=== PATIENT | male | born 1945 | race Caucasian/White ===

== ENCOUNTER 2022-05-19 20:48 | Emergency (ER) | payer MEDICARE, OTHER ==
[~2022-05-19] VITALS: Ht 180.3 cm; Wt 81.6 kg
[2022-05-19 20:48] VITALS: BP 167/92
--- NOTE | 2022-05-19 20:48 | NUR ---
ARRIVAL TAKEN VIA WHEELCHAIR TO ROOM. ASSIST X2 TO BED. SHUFFLING GAIT. 3 WEEKS OF RIGHT MID BACK PAIN. HAS REDNESS TO RIGHT MID BACK. H/O SHINGLES. FELL THIS EVENING. TOOK 2 GABAPENTIN 350MG THIS AM. HAS HAD 5 SHOTS OF WHISKEY TODAY. WAS SINGING A SONG AT [facility] AND LOST BALANCE AND FELL. HAS ABRASION TO FA THAT WAS BANDAGE BY FAMILY MEMBER "THAT IS A PHYSICIAN". ALERT AND ORIENTED X3. AT BEDSIDE. C/O PAIN 20/[address] BONE AT BEDSIDE. AWAITING NEW ORDERS.
--- NOTE | 2022-05-19 21:27 | PCM.EKG ---
[facility] Test Date: 2022-05-19 Test Time: 21:24:54 Pat Name: CORINA ARCOS Department: Room: Gender: M Lock Plater: SUDHA : 1945 Requested By: VICKEY BONE Order Number: [id number] Reading MD: Measurements Intervals [place] Rate: 56 P: 30 WY: 189 QRS: 44 QRSD: 91 T: 53 QT: 426 QTc: 412 Interpretive Statements Sinus rhythm No previous ECG available for comparison Please click the below link to view image of tracing.
[2022-05-19] MEDS ORDERED: TORADOL IM ONE (21:30)
[2022-05-19] MEDS ORDERED: TORADOL ONE (21:30)
[2022-05-19 22:06] LABS: BASOPHIL % 0.8 % (0.0-0.2); EOSINOPHIL # 0.1 10^3/uL (0.0-0.2); EOSINOPHIL % 3.8 % (0.0-5.0); LYMPHOCYTES # 1.28 10^3/uL1 (1.0-4.8); LYMPHOCYTES % 34.6 % (24.0-44.0); MEAN CORP HGB 37.3 pg (26-34); MONOCYTES # 0.4 10^3/uL (0.3-0.8); MONOCYTES % 11.6 % (5.0-12.0); NEUTROPHIL # 1.8 10^3/uL (1.8-7.7); NEUTROPHILS % 49.2 % (41.0-85.0); PLATELET COUNT 106 10^3/uL (150-400); RED CELL DISTRIBUTION WIDTH 12.6 % (11.5-14.5)
--- NOTE | 2022-05-19 22:27 | DIREP ---
PROCEDURE:CHEST 1 VIEW COMPARISON:None. INDICATIONS:tremors/weakness FINDINGS: LUNGS/PLEURA:Mild platelike atelectasis at the left lung base. Otherwise lungs are clear. VASCULATURE:Normal. Unremarkable pulmonary vasculature. CARDIAC:Normal. No cardiac silhouette abnormality or cardiomegaly. MEDIASTINUM:Normal. No visible mass or adenopathy. BONES:Normal. No fracture or visible bony lesion. OTHER:Negative. CONCLUSION:Platelike atelectasis at the left lung base. Dictated by: Dano Waters M.D. on 05/19/2022 at 10:26 PM
[2022-05-19 22:30] LABS: CARBON DIOXIDE 27.9 mmol/L (20.0-32)
--- NOTE | 2022-05-19 22:43 | DIREP ---
PROCEDURE:CT SPINE THORACIC W/O COMPARISON:None. INDICATIONS:severe pain midline, radiates to right upper back TECHNIQUE:Multi-planar CT images were obtained and created without intravenous contrast. FINDINGS: VERTEBRAE:No visible fracture ALIGNMENT:Curvature and alignment are within normal limits for age. DISCS:Mild vacuum phenomenon at the mid to lower thoracic spine. SPINAL CORD/CONUS:Grossly intact PARASPINAL AREA:Normal. CONCLUSION:No visible fracture. Mild degenerative disc disease. Dictated by: Dano Waters M.D. on 05/19/2022 at 10:35 PM
--- NOTE | 2022-05-19 22:46 | DIREP ---
PROCEDURE: CT LUMBAR SPINE WITHOUT CONTRAST TECHNIQUE:Axial cuts were obtained through the lumbar spine. The images were viewed at bone and soft tissue settings. Sagittal and coronal reconstructions are provided. COMPARISON:None. INDICATIONS:b/l LE weakness, fall FINDINGS: ALIGNMENT:Curvature and alignment are maintained. VERTEBRAE:No visible compression fracture. PARASPINAL AREA:No visible mass. OTHER:Calcified atherosclerosis. LUMBAR DISC LEVELS T12-L1:No foraminal or spinal stenosis. L1-L2:No foraminal or spinal stenosis. L2-L3:Minimal dorsal bulge. No significant foraminal or spinal stenosis. L3-L4:Minimal dorsal bulge. No significant foraminal or spinal stenosis. L4-L5:Mild facet arthropathy. Small dorsal bulge. Mild foraminal stenosis. Mild spinal stenosis. Mild facet arthropathy. L5-S1:Mild facet arthropathy. No significant foraminal or spinal stenosis. CONCLUSION:Mild degenerative changes. No visible fracture. Dictated by: Dano Waters M.D. on 05/19/2022 at 10:41 PM
--- NOTE | 2022-05-19 22:50 | DIREP ---
PROCEDURE:CT CERVICAL SPINE WITHOUT CONTRAST TECHNIQUE:Axial cuts were obtained through the cervical spine. The images were viewed at bone and soft tissue settings. Sagittal and coronal reconstructions are provided. COMPARISON:None. INDICATIONS:severe pain, right arm weakness FINDINGS: ALIGNMENT:Curvature and alignment are maintained. Patient is tilted to the right. VERTEBRAE:No visible compression fracture. Endplate degenerative changes C5-6, C6-7 and C7-T1. PARASPINAL AREA:No visible mass. Calcified atherosclerosis. OTHER:No additional findings. CERVICAL DISC LEVELS C2-C3:No foraminal or spinal stenosis. C3-C4:Mild disc space height loss. Mild endplate degenerative changes. No foraminal or spinal stenosis. C4-C5:Mild uncovertebral arthropathy on the left and moderate on the right. Moderate right and mild left foraminal stenosis. No spinal stenosis. C5-C6:Moderate disc space height loss. Endplate sclerosis. Uncovertebral arthropathy worse on the right. Mild left and moderate right foraminal stenosis. No spinal stenosis. C6-C7:Disc space height loss with endplate degenerative changes. No foraminal or spinal stenosis. C7-T1:No significant foraminal or spinal stenosis. Mild right facet arthropathy. CONCLUSION: 1. No acute fracture. 2. Mild degenerative changes. Dictated by: Dano Waters M.D. on 05/19/2022 at 10:45 PM
[2022-05-19] MEDS ORDERED: LAMICTAL PO STA (23:20)
--- NOTE | 2022-05-19 23:20 | ER.PDOC ---
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 Patient also with some neck and thoracic area pain. He indicated the pain now radiates to the right upper extremity which is something new. Denies any weakness at this point but the does indicate that he been having unsteady gait and imbalance. He does admit to drinking 5 glasses of whiskey because the pain was out of control. The patient is taking currently gabapentin and apparently is not helping very much. He also takes acyclovir and recently finished a course of prednisone. No fever and no chills. No shortness of breath and no chest pain. No nausea no vomiting. No abdominal pain. The pain is severe and constant and progressive. He said he cannot sleep because of the pain. Allergies: Coded Allergies: No Known Allergies (Unverified , 05/19/22) Past Medical History Medical History: hypertension Surgical History: other LMP (females 10-50): N/A Not applicalbe Family History Significant Family History: no pertinent family hx Social History Smoking: non-smoker Alcohol Use: occassionally Drug Use: none Reviewed Nursing Reviewed: Vital Signs, Abn. Noted, Nursing Assessment Review of Systems Constitutional: denies no symptoms reported, denies see HPI, denies chills, denies diaphoresis, denies fever, denies malaise, denies weakness, denies other EENTM: denies no symptoms reported, denies see HPI, denies eye pain, denies blurred vision, denies tearing, denies double vision, denies ear pain, denies ear discharge, denies nose pain, denies nose congestion, denies throat pain, denies throat swelling, denies mouth pain, denies mouth swelling, denies other Respiratory: denies no symptoms reported, denies see HPI, denies cough, denies orthopnea, denies shortness of breath, denies stridor, denies wheezing, denies other Cardiovascular: denies no symptoms reported, denies see HPI, denies chest pain, denies edema, denies palpitations, denies syncope, denies other Gastrointestinal: denies no symptoms reported, denies see HPI, denies abdominal pain, denies constipation, denies diarrhea, denies nausea, denies vomiting, denies other Genitourinary: denies no symptoms reported, denies see HPI, denies discharge, denies dysuria, denies frequency, denies hematuria, denies pain, denies other Musculoskeletal: denies no symptoms reported, denies see HPI; back pain; denies gout, denies joint pain, denies joint swelling, denies muscle pain, denies muscle stiffness; neck pain; denies other Skin: denies no symptoms reported, denies see HPI, denies change in color, denies change in hair/nails, denies dryness, denies lesions, denies lumps, denies rash, denies other Psychiatric/Neurological: denies no symptoms reported, denies see HPI, denies anxiety, denies depressed, denies emotional problems, denies headache, denies numbness, denies paresthesia, denies pre-existing deficit, denies seizure, denies tingling, denies tremors, denies weakness, denies other Hematologic/Lymphatic: denies no symptoms reported, denies see HPI, denies anemia, denies blood clots, denies easy bleeding, denies easy bruising, denies swollen glands, denies other Immunological/Allergic: denies no symptoms reported, denies see HPI, denies food allergy, denies grass allergy, denies mold allergy, denies pollen allergy, denies HIV/AIDS, denies transplant All Other Systems: Reviewed and Negative Physical Exam General Appearance: Moderate Distress EENT: eyes nml inspection, nml ENT inspection Neck: Supple, Tender Midline Respiratory: lungs clear, normal breath sounds, no respiratory distress, no accessory muscle use, other (Posterior right chest wall/upper backup operator to palpation. I do not see any obvious rash. There is mild erythema of the soft tissue in dermatomal distribution) CVS: reg rate & rhythm, no murmur, no gallop, nml capillary refill Gastrointestinal: Normal Bowel Sounds, No Organomegaly, No Pulsatile Mass, Non Tender Back: Normal Inspection, Vertebral Tenderness, Other (There is some cervical and upper thoracic vertebral tenderness. 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, No Motor/Sensory Deficits, Alert, Normal Mood/Affect, Oriented x 3 Skin: Normal Color, Warm/Dry Lymphatic: No Adenopathy Results/Orders Results/Orders Orders - VICKEY BONE MD Cbc With Auto Diff (05/19/22 20:59) Comprehensive Metabolic Panel (05/19/22 20:59) Creatine Kinase (05/19/22 20:59) D-Dimer (05/19/22 20:59) Xr Chest 1v (05/19/22 20:59) Ekg-Routine (05/19/22 20:59) Troponin I High Sensitivity (05/19/22 20:59) Magnesium (05/19/22 20:59) Ammonia (05/19/22 20:59) Thyroid Stimulating Horm(Ml) (05/19/22 20:59) Ct Cervical Spine (05/19/22 20:59) Ct Thoracic Wo Contrast (05/19/22 20:59) Ct Lumbar Wo Contrast (05/19/22 20:59) Alcohol(Ml) (05/19/22 20:59) Ketorolac Tromethamine (Toradol) (05/19/22 21:30) Ketorolac Tromethamine (Toradol) (05/19/22 21:30) Acetaminophen With Codeine (Tylenol #3) (05/19/22 23:30) Lamotrigine (Lamictal) (05/19/22 23:20) Lidocaine (Lidoderm) (05/20/22 09:00) Vital Signs Date Time Temp Pulse Resp B/P (MAP) Pulse Ox O2 Delivery O2 Flow Rate FiO2 05/19/22 20:48 98.0 67 18 05/19/22 20:48 98.0 67 18 98 05/19/22 20:48 98.0 67 18 167/92 (117) 98 Room Air* 0 21 Administered Medications Medications (Trade) Dose Ordered Sig/Ramana Route PRN Reason Start Time Stop Time Status Last Admin Dose Admin Ketorolac Tromethamine (Toradol) 60 mg OT ONCE IM 05/19/22 21:30 05/19/22 21:33 DC 05/19/22 21:47 60 MG Laboratory Tests Test 05/19/22 21:40 White Blood Count 3.7 10^3/uL (4.5-11.0) L Red Blood Count 4.02 10^6/uL (4.50-5.90) L Hemoglobin 15.0 g/dL (13.9-16.3) Hematocrit 41.3 % (37.0-53.0) Mean Corpuscular Volume 102.7 fL (78-100) H Mean Corpuscular Hemoglobin 37.3 pg (26-34) H Mean Corpuscular Hemoglobin Concent 36.3 g/dL (33-36.5) Red Cell Distribution Width 12.6 % (11.5-14.5) Platelet Count 106 10^3/uL (150-400) L Mean Platelet Volume 9.5 fL (7.8-11.0) Neutrophils (%) (Auto) 49.2 % (41.0-85.0) Lymphocytes (%) (Auto) 34.6 % (24.0-44.0) Monocytes (%) (Auto) 11.6 % (5.0-12.0) Neutrophils # (Auto) 1.8 10^3/uL (1.8-7.7) Lymphocytes # (Auto) 1.28 10^3/uL1 (1.0-4.8) Monocytes # (Auto) 0.4 10^3/uL (0.3-0.8) Absolute Immature Granulocyte (auto 0 10^3 u/L (0-2) Absolute Eosinophils (auto) 0.1 10^3/uL (0.0-0.2) Immature Granulocytes % 0.00 % (0.00-0.50) Eosinophils % 3.8 % (0.0-5.0) Basophils % 0.8 % (0.0-0.2) H Basophils # 0.0 10^3/uL (0.0-0.1) D-Dimer 0.70 mg/L (0.19-0.49) *H Sodium Level 141 mmol/L (132-145) Potassium Level 3.9 mmol/L (3.6-5.2) Chloride Level 104.0 mmol/L (96-109) Carbon Dioxide Level 27.9 mmol/L (20.0-32) Anion Gap 13.0 Blood Urea Nitrogen 11 mg/dL (7-18) Creatinine 0.89 mg/dL (0.59-1.40) Estimated GFR () 100.0 (>/=60) Est GFR (CKD-EPI)(Non-Afr [place]) 82.7 (>/=60) BUN/Creatinine Ratio 12.0 Glucose Level 96 mg/dL (70-110) Calcium Level 8.9 mg/dL (8.4-10.5) Magnesium Level 1.9 mg/dL (1.8-2.4) Total Bilirubin 0.7 mg/dL (0.2-1.0) Aspartate Amino Transferase (AST) 36 U/L (0-35) H Alanine Aminotransferase (ALT) 38 U/L (12-78) Alkaline Phosphatase 66 U/L (50-136) Ammonia 1 umol/L (11-35) L Total Creatine Kinase 105 U/L (39-308) Troponin I High Sensitivity 7 ng/L (0-75) Total Protein 6.5 g/dL (6.4-8.2) Albumin 3.8 g/dL (3.4-5.0) Globulin 2.7 Albumin/Globulin Ratio 1.407 Thyroid Stimulating Hormone (TSH) 1.840 mIU/mL (0.358-3.740) Serum Alcohol 64 mg/dL (0-50) H Progress Progress PROCEDURE:CT CERVICAL SPINE WITHOUT CONTRAST TECHNIQUE:Axial cuts were obtained through the cervical spine. The images were viewed at bone and soft tissue settings. Sagittal and coronal reconstructions are provided. COMPARISON:None. INDICATIONS:severe pain, right arm weakness FINDINGS: ALIGNMENT:Curvature and alignment are maintained. Patient is tilted to the right. VERTEBRAE:No visible compression fracture. Endplate degenerative changes C5-6, C6-7 and C7-T1. PARASPINAL AREA:No visible mass. Calcified atherosclerosis. OTHER:No additional findings. CERVICAL DISC LEVELS C2-C3:No foraminal or spinal stenosis. C3-C4:Mild disc space height loss. Mild endplate degenerative changes. No foraminal or spinal stenosis. C4-C5:Mild uncovertebral arthropathy on the left and moderate on the right. Moderate right and mild left foraminal stenosis. No spinal stenosis. C5-C6:Moderate disc space height loss. Endplate sclerosis. Uncovertebral arthropathy worse on the right. Mild left and moderate right foraminal stenosis. No spinal stenosis. C6-C7:Disc space height loss with endplate degenerative changes. No foraminal or spinal stenosis. C7-T1:No significant foraminal or spinal stenosis. Mild right facet arthropathy. CONCLUSION: 1. No acute fracture. 2. Mild degenerative changes. PROCEDURE:CT SPINE THORACIC W/O COMPARISON:None. INDICATIONS:severe pain midline, radiates to right upper back TECHNIQUE:Multi-planar CT images were obtained and created without intravenous contrast. FINDINGS: VERTEBRAE:No visible fracture ALIGNMENT:Curvature and alignment are within normal limits for age. DISCS:Mild vacuum phenomenon at the mid to lower thoracic spine. SPINAL CORD/CONUS:Grossly intact PARASPINAL AREA:Normal. CONCLUSION:No visible fracture. Mild degenerative disc disease. PROCEDURE: CT LUMBAR SPINE WITHOUT CONTRAST TECHNIQUE:Axial cuts were obtained through the lumbar spine. The images were viewed at bone and soft tissue settings. Sagittal and coronal reconstructions are provided. COMPARISON:None. INDICATIONS:b/l LE weakness, fall FINDINGS: ALIGNMENT:Curvature and alignment are maintained. VERTEBRAE:No visible compression fracture. PARASPINAL AREA:No visible mass. OTHER:Calcified atherosclerosis. LUMBAR DISC LEVELS T12-L1:No foraminal or spinal stenosis. L1-L2:No foraminal or spinal stenosis. L2-L3:Minimal dorsal bulge. No significant foraminal or spinal stenosis. L3-L4:Minimal dorsal bulge. No significant foraminal or spinal stenosis. L4-L5:Mild facet arthropathy. Small dorsal bulge. Mild foraminal stenosis. Mild spinal stenosis. Mild facet arthropathy. L5-S1:Mild facet arthropathy. No significant foraminal or spinal stenosis. CONCLUSION:Mild degenerative changes. No visible fracture. Chest x-ray-mild left lower lobe atelectasis ED course: Patient with severe flank and chest wall pain. The patient recently diagnosed with post herpes neuralgia. Apparently not getting much improvement from the gabapentin so he resorted to having several extra drinks of alcohol tonight. The patient did not look in what appeared to be severe pain and eye exam he actually has some cervical and thoracic midline vertebral tenderness. I proceeded to do a CT to exclude vertebral pathology. His actually indicated that he was having some lower extremity weakness and difficulty walking. At this point CT showed no acute pathology. I do believe that the gabapentin is affecting him significantly and maybe he should stay away from it. I will replace this with no rectal which is a antiseizure medication but has excellent action on neuropathic and neuralgic pain. I had an extensive conversation with the patient and the . I will also his time #3 for several days of the indicated him that chronic use of narcotics for neuralgia is not accepted into today's medical management of neuralgia. Other agents to consider will be Elavil particularly at night that would help with sleep. Again I indicated that he needs to stop drinking alcohol. He is in understanding of my explanation and will be discharged home. ER DEPART Departure Time of Disposition: 23:17 Disposition: 01 HOME / SELF CARE / HOMELESS Impression: Primary Impression: Thoracic back sprain Additional Impressions: HZV (herpes zoster virus) post herpetic neuralgia Neck pain Thoracic spine pain Fall Alcohol abuse Macrocytic anemia Condition: Improved Referrals: PCP,UNKNOWN (PCP) PRIMARY CARE PROVIDER Additional Instructions: Apply lidocaine patch [id number] with extra strength [place] to the affected area as needed several times a day Consider also adding Seen lotion to the affected area as needed several times a day Consider local massage therapy to the area Discontinue gabapentin for now Cut back on alcohol drinking Ensure adequate sleep Follow-up with your doctor soon as possible Consider visiting a pain specialist Avoid long-term use of narcotics for pain Return to the hospital if any new symptoms develop Duration or Time Spent with Pa: 45 Problem Qualifiers VICKEY BONE MD May 19, 2022 23:19
[2022-05-19] MEDS ORDERED: LIDODERM TP ONE ×2 (23:22→23:26)
[2022-05-19] MEDS ORDERED: TYLENOL #3 PO ONE (23:22)
[2022-05-19] MEDS ORDERED: TYLENOL #3 PO PRN (23:30)
[2022-05-19 23:33] VITALS: BP 128/3
[2022-05-20] MEDS ORDERED: LIDODERM TP ONE (09:00)
== END 2022-05-19 23:40 | disposition home or self-care (01) ==
LOC: ER 20:48
DX: S23.3XXA Sprain of ligaments of thoracic spine, initial encounter (principal); B02.29 Other postherpetic nervous system involvement; D53.9 Nutritional anemia, unspecified; F10.10 Alcohol abuse, uncomplicated; I10 Essential (primary) hypertension; M54.2 Cervicalgia; M54.6 Pain in thoracic spine; W19.XXXA Unspecified fall, initial encounter; Y93.89 Activity, other specified; Y92.89 Other specified places as the place of occurrence of the external cause; Y99.8 Other external cause status
CPT/HCPCS: 99285; 72125; 71045; 96372; 72128; 72131; 80053; 85025; 36415; 85379; 84484; 82140; 82077; 82550; 84443; 83735; 93005; J1885; J3490